=== PATIENT | male | born 1930 | race Caucasian/White ===

== ENCOUNTER → 2018-01-25 | Outpatient (CLI) | payer MEDICARE, BC ==
[~2018-01-25] MED LIST: ASPIR 8181 MG PO; ATORVASTATIN CA40 MG PO; BRILINTA90 MG PO; CARVEDILOL3.125 MG PO; FISH OIL 1,001000 M2 PO; UNICOMPLEX M TA1 TA1 PO; VITAMIN D3400 UNI1 PO
--- NOTE | 2018-01-25 13:27 | 2DMMODE ---
[place] [address] 2 D/M-MODE ECHOCARDIOGRAM Name: SHORTY HURST Room: [facility]#: [id number] Admission: 01/25/18 Attend Phys: Megan Roche Discharge: Date of : 34 Date of Service: 01/25/18 1326 Report #: [id number] THIS REPORT FOR: //name// APPROVED REPORT Study performed: 01/25/2018 09:08:43 EXAM: Comprehensive 2D, Doppler, and color-flow Echocardiogram Patient Location: Out-Patient Status: routine BSA: 1.93 HR: 64 bpm BP: 105/66 mmHg Other Information Study Quality: Good Indications CAD 2D Dimensions LVEF(%): 68.94 (>50%) IVSd: 10.40 (7-11mm) LVOT Diam: 20.42 (18-24mm) LVDd: 45.38 mm PWd: 10.30 (7-11mm) Ascending Ao: 28.73 (22-36mm) LVDs: 27.90 (25-40mm) Aortic Root: 30.55 mm Simmons's LVEF: 68.94 % Volumes Left Atrial Volume (Systole) LA ESV Index: 13.10 mL/m2 Aortic Valve AoV Peak Alexys.: 0.90 m/s AO Peak Gr.: 3.23 mmHg LVOT Max P.92 mmHg AO Mean Gr.: 1.76 mmHg LVOT Mean P.96 mmHg LVOT Max V: 0.69 m/s AO V2 VTI: 17.24 cm LVOT Mean V: 0.45 m/s RAYMOND (VTI): 3.03 cm2 LVOT V1 VTI: 15.92 cm Mitral Valve E/A Ratio: 0.87 MV Decel. Time: 381.24 [place] [address] 2 D/M-MODE ECHOCARDIOGRAM Name: SHORTY HURST Room: [facility]#: [id number] Admission: 01/25/18 Attend Phys: Megan Roche Discharge: Date of : 34 Date of Service: 01/25/18 1326 Report #: [id number] MV E Max Alexys.: 0.50 m/s MV PHT: 110.56 ms MVA (PHT): 1.99 cm2 TDI E/Lateral E': 4.17 E/Medial E': 5.00 Medial E' Alexys.: 0.10 m/s Lateral E' Alexys.: 0.12 m/s Pulmonary Valve PV Peak Alexys.: 0.81 m/s PV Peak Gr.: 2.62 mmHg Tricuspid Valve TR Peak Gr.: 23.19 mmHg RVSP: 28.19 mmHg Left Ventricle The left ventricle is normal size. There is inferobasilar hypokinesis noted. There is normal left ventricular wall thickness. Left ventricular systolic function is borderline. LVEF is 50-55%. Grade I - abnormal relaxation pattern. Right Ventricle The right ventricle is normal size. The right ventricular systolic function is normal. Atria The left atrium size is normal. The right atrium size is normal. Aortic Valve The aortic valve is normal in structure. No aortic regurgitation is present. There is no aortic valvular stenosis. Mitral Valve The mitral valve is normal in structure. Mild mitral regurgitation. No evidence of mitral valve stenosis. Tricuspid Valve The tricuspid valve is normal in structure. Mild tricuspid regurgitation. The RVSP is __28.2 mmHg. Pulmonic Valve The pulmonary valve is normal in structure. There is no pulmonic valvular regurgitation[place] [address] 2 D/M-MODE ECHOCARDIOGRAM Name: SHORTY HURST Room: [facility]#: [id number] Admission: 01/25/18 Attend Phys: Megan Roche Discharge: Date of : 34 Date of Service: 01/25/18 1326 Report #: [id number] The aortic root is normal in size. IVC is normal in size and collapses with >50% inspiration Pericardium There is no pericardial effusion. <Conclusion> The left ventricle is normal size. There is normal left ventricular wall thickness. Left ventricular systolic function is borderline. LVEF is 50-55%. Grade I - abnormal relaxation pattern. The right ventricle is normal size. The left atrium size is normal. The aortic valve is normal in structure. The mitral valve is normal in structure. Mild mitral regurgitation. The tricuspid valve is normal in structure. Mild tricuspid regurgitation. The RVSP is __28.2 mmHg. IVC is normal in size and collapses with >50% inspiration There is no pericardial effusion. There is inferobasilar hypokinesis noted. <ELECTRONICALLY SIGNED> By: Brian Huang MD, FACC 01/25/181325 25 25 rBian Huang MD, FACC /INF
== END ==
LOC: M.CRD 08:46
DX: I08.1 Rheumatic disorders of both mitral and tricuspid valves (principal); I25.10 Atherosclerotic heart disease of native coronary artery without angina pectoris; I21.11 ST elevation (STEMI) myocardial infarction involving right coronary artery

== ENCOUNTER 2018-08-29 12:38 | Inpatient (IN) | payer MEDICARE, BC ==
[~2018-08-29] VITALS: Ht 152.4 cm; Wt 72.6 kg
--- NOTE | ~2018-08-29 | CON ---
[address] [address] CONSULTATION Name: SHORTY HURST Room: [address] IN M.R.#: [id number] Admission: 08/29/18 Attend Phys: Belen Jacobs Discharge: Date of : 32 Report #: [id number] THIS REPORT FOR: //name// CC: Garett Ponce DATE OF SERVICE: 08/30/2018 HISTORY OF PRESENT ILLNESS: This is an 87-year-old male patient who is being evaluated for an episode of dizziness and syncope he had. He felt lightheaded. He was weak in all 4 extremities. He said he was fully conscious and he himself called 911. No clear tonic-clonic activity was noticed. He does have a cardiac history, but according to son, his blood pressure was normal and he did not feel that he had any cardiac symptoms associated with it. His symptoms have become better. He looks pretty unhappy because he does not like to be in the hospital. He did have an associated diaphoresis along with it. REVIEW OF SYSTEMS: His 14-point review of system was carried out. He indicated that he had cardiac problems in the past. He had stent put in. It was about 1 year ago. He follows up with his utility pipe layer and has not had any further symptoms from cardiac perspective. He denies any new eye, ENT, respiratory, GI, , musculoskeletal, constitutional, dermatological, hematological, psychiatric, throat, allergic symptom associated with present symptomatology. PAST MEDICAL HISTORY: Positive for cardiac problem. FAMILY HISTORY: Negative for any early age stroke. SOCIAL HISTORY: He lives with his . He does not drink alcohol or smoke. PHYSICAL EXAMINATION: Indicate he is alert, responsive. His speech, concentration, fund of knowledge and memory is at his baseline. Cranial nerve examination 2-12 was unremarkable. The patient has symmetrical strength, sensation, reflexes and tone in all 4 extremities. There is no cerebellar sign or papilledema. Cardiac examinations appear unremarkable ox, no respiratory difficulty or rhonchi. Pulses are somewhat difficult to feel in the legs; no edema, cyanosis or jaundice. No meningeal sign. No carotid bruit. He is moderately built individual who is thin and his vision and hearing looks adequate. His blood pressure is 116/63, respiration is 16, pulse is 71, temperature is 98. LABORATORY DATA: His WBC count is 5.4. His sodium is slightly low at 131 and it was 129 on admission. He did have a CT scan of the head, [place] [address] CONSULTATION Name: SHORTY HURST Room: [address]#: [id number] Admission: 08/29/18 Attend Phys: Belen Jacobs Discharge: Date of : 32 Report #: [id number] IMPRESSION: Clinically, it does not look like the episode was neurological in origin. However, the possibility of posterior fossa transient ischemic attack or seizures cannot be fully excluded. I think he needs further workup for that. I discussed the situation with him. Initially, he was reluctant, but then he said he will proceed with the workup. I would like to get an MRI/MRA and an EEG done. If that is negative, that will make it even less likely that there is a neurological cause and the emphasis should be continuing to look for systemic including cardiac causes for which he is already being worked up. RECOMMENDATIONS: 1. MRI. 2. MRA. 3. EEG. 4. If that workup is negative, then I do not believe any further neurological workup is indicated in this patient. Thank you very much for this referral. By: 0924 [id number] Wolf MD /nt
--- NOTE | ~2018-08-29 | EEG ---
[address] [address] EEG STUDY REPORT Name: ARISSHORTY Skylar Room: [address] IN .#: [id number] Admission: 08/29/18 Attend Phys: Belen Jacobs Discharge: Date of : 32 Report #: [id number] THIS REPORT FOR: //name// CC: Garett Ponce DATE OF SERVICE: 08/30/2018 This patient is admitted with an episode of presyncope. EEG is being done to evaluate that further. The patient's EEG was done by placing the electrode by standard 10-20 system of electrode placement. Both referential and sequential montages were used for recording. Background activity in this patient's EEG is about 10 Hz and 30 microvolts. It is a symmetrical activity. Photic stimulation was unremarkable. The patient went to sleep that is associated with bilaterally symmetrical sleep spindle and vertex sharp waves. Throughout the record, no active epileptiform activity was noticed. IMPRESSION: This patient's electroencephalogram is unremarkable. By: 1602 1608Talha Wolf MD /nt
[2018-08-29 12:42] VITALS: BP 134/70
[2018-08-29 13:11] LABS: ABSOLUTE EOSINOPHILS 0.1 thou/uL (0.0-0.7); ABSOLUTE LYMPHOCYTES 1.4 thou/uL (0.8-5.3); ABSOLUTE MONOCYTES 0.5 thou/uL (0.0-1.2); ABSOLUTE NEUTROPHILS 3.3 thou/uL (1.6-8.1); BASOPHILS 0.4 %; EOSINOPHILS 1.4 %; HEMATOCRIT 35.8 % (42.0-52.0); HEMOGLOBIN 11.8 gm/dL (14.0-18.0); LYMPHOCYTES 26.1 %; MCH 28.1 pg (26.0-34.0); MCHC 33.1 g/dL (28.0-37.0); MCV 84.9 fL (80.0-100.0); MPV 7.1 fl. (7.2-11.1); NUCLEATED RBCS 0 /100WBC; PLATELET COUNT* 196 thou/uL (150-400); POLYS 62.1 %; RBC 4.21 mil/uL (4.50-6.00); WBC 5.4 thou/uL (4.0-11.0)
[2018-08-29 13:20] LABS: ANION GAP 7 mmol/L (7-16); BUN 18 mg/dL (7-18); CALCIUM 8.6 mg/dL (8.5-10.1); CHLORIDE 94 mmol/L (98-107); CO2 28 mmol/L (21-32); CREATININE 0.9 mg/dL (0.6-1.3); GLUCOSE 108 mg/dL (70-99); POTASSIUM 4.4 mmol/L (3.5-5.1); SODIUM 129 mmol/L (136-145)
[2018-08-29 13:27] LABS: ALBUMIN 3.6 g/dL (3.4-5.0); ALKALINE PHOSPHATASE 46 U/L (46-116); LIPASE 377 U/L (73-393); SGOT 17 U/L (15-37); SGPT 20 U/L (30-65); TOTAL BILIRUBIN 0.6 mg/dL (<0.1-1.0); TROPONIN-I LEVEL <0.06 ng/mL (<0.06)
[2018-08-29 13:33] LABS: APTT 23.2 Seconds (25.0-31.3); PROTIME 10.5 Seconds (9.20-11.50)
[2018-08-29 13:46] LABS: URINE BILIRUBIN NEGATIVE (Negative); URINE BLOOD NEGATIVE (Negative); URINE CLARITY CLEAR; URINE COLOR YELLOW; URINE GLUCOSE-RANDOM NEGATIVE (Negative); URINE KETONES 1+ (Negative); URINE LEUKOCYTES-REFLEX NEGATIVE (Negative); URINE NITRITE-REFLEX NEGATIVE (Negative); URINE PROTEIN TRACE (Negative); URINE SPECIFIC GRAVITY 1.025 (1.005-1.030)
[2018-08-29 14:07] VITALS: BP 118/63
--- NOTE | 2018-08-29 14:32 | EKG ---
[place] [address] ELECTROCARDIOGRAM REPORT Name: SHORTY HURST Room: [place] [address] [facility].#: [id number] Admission: 08/29/18 Attend Phys: Belen Jacobs Discharge: Date of : 32 Report #: [id number] THIS REPORT FOR: //name// [facility] ED Test Date: 2018-08-29 Test Time: 12:43:51 Pat Name: SHORTY HURST Department: Room: [facility] Gender: M Business Architect: Maximiliano RIVERA : 1930 Requested By: Fuad Carrillo Order Number: [id number] MD: Andrea Gillette Measurements Intervals [place] Rate: 64 P: 9 MA: 178 QRS: -15 QRSD: 99 T: -14 QT: 391 QTc: 404 Interpretive Statements Sinus rhythm Borderline left axis deviation Low voltage, extremity leads Abnormal R-wave progression, early transition Compared to ECG 05/20/2017 03:24:41 Low QRS voltage now present Myocardial infarct finding no longer present Electronically Signed On 08-29-2018 14:32:38 PRECISION LENS GRINDER APPRENTICE by Andrea Gillette [email or web address] <ELECTRONICALLY SIGNED> By: Andrea Gillette MD, FACC 08/29/18 1432 1243 1243 Andrea Gillette MD, FACC /EPI
[2018-08-29 15:43] VITALS: BP 131/66
[2018-08-29 16:00] VITALS: BP 117/59
--- NOTE | 2018-08-29 16:09 | NUR ---
ASSUMED PT CARE REPORT RECEIVED FORM NURSE. PT IS AOX4 SR ON GREENSKEEPER. IV LINES PATENT. ADMISSION HX DONE. ADMISSION ASSESSMENT DONE. REFER TO CHARTING. PT IS IN ROOM SITTING IN BED WITH FAMILY. SNACK PROVIDED. HYDRATION ENCOURAGED. IV FLUID STARTED ORDERED. WILL CONTINUE TO MONITOR.
--- NOTE | 2018-08-29 18:55 | NUR ---
NIH SCORE 0. TALKED TO PT SON TO BRING MEDICATION LIST. CONSULTS CALLED.
[2018-08-29 20:00] VITALS: BP 105/58
[2018-08-30] VITALS: BP 102/60
[2018-08-30 04:00] VITALS: BP 116/63
[2018-08-30 05:21] LABS: CHOLESTEROL 108 mg/dL (<200); HDL CHOLESTEROL 62 mg/dL (>40); LDL CHOLESTEROL 40 mg/dL (<100); TC:HDL 1.7 Ratio (Not establshd); TRIGLYCERIDE 33 mg/dL (<150); VLDL 7 mg/dL (<40)
[2018-08-30 05:29] LABS: CALCIUM 8.2 mg/dL (8.5-10.1); CREATININE 0.7 mg/dL (0.6-1.3)
[2018-08-30 05:33] LABS: SERUM ASSESSMENT Clear
--- NOTE | 2018-08-30 07:35 | NUR ---
ASSUMED PT CARE @ 1930. PT A=O X 4 BUT FORGETFUL R/T ANXIETY. PT REPORTS "IM WORRIED ABOUT MY ." PT STATES HE CAN'T TAKE CARE OF HER ANYMORE (R/T ALZHEIMER'S) AND IS WORRIED ABOUT WHO WILL TAKE CARE OF HER. THIS HAS RESULTED IN POOR SLEEP SEVERAL NIGHTS IN A ROW. REQUESTED SLEEP MED. GIVEN. PT VOIDED FREQUENTLY PER URINAL. 150-250CC EACH TIME. DROP OF BLOOD NOTED X2 IN TOILET WHEN PT UP TO TOILET. ATTEMPTED TO HAVE BM BUT WAS ONLY ABLE TO URINATE. NO EXTERNAL HEMMORRHOIDS NOTED. POST VOID RESIDUAL 39CC AFTER PT VOIDED IN TOILET. PT DENIES BURNING WITH URINATION THIS AM BUT REPORTED SOME EARLIER IN SHIFT. HS GOAL OF SLEEP PARTIALLY ACHIEVED. CALL AT BEDSIDE. HOURLY ROUNDING FOR SAFETY.
[2018-08-30 09:15] VITALS: BP 102/54
[2018-08-30 09:53] LABS: URINE BILIRUBIN NEGATIVE (Negative); URINE BLOOD TRACE (Negative); URINE CLARITY CLEAR; URINE COLOR YELLOW; URINE GLUCOSE-RANDOM NEGATIVE (Negative); URINE KETONES TRACE (Negative); URINE LEUKOCYTES-REFLEX NEGATIVE (Negative); URINE NITRITE-REFLEX NEGATIVE (Negative); URINE PROTEIN NEGATIVE (Negative); URINE UROBILINOGEN 0.2 E.U./dl (0.2-1.0)
--- NOTE | 2018-08-30 10:19 | EKG ---
[place] [address] ELECTROCARDIOGRAM REPORT Name: SHORTY HURST Room: [address] ADM IN M.R.#: [id number] Admission: 08/29/18 Attend Phys: Belen Jacobs Discharge: Date of : 32 Report #: [id number] THIS REPORT FOR: //name// [facility] Test Date: 2018-08-29 Test Time: 17:45:34 Pat Name: SHORTY HURST Department: Room: [address] Gender: M Explosive Ordnance Disposal Specialist: JOSE DE JESUS : 1930 Requested By: Daevy Ponce Order Number: [id number] Reading MD: Garett Jarrell Measurements Intervals [place] Rate: 69 P: 47 NC: 177 QRS: -13 QRSD: 89 T: -18 QT: 384 QTc: 412 Interpretive Statements Sinus rhythm Borderline low voltage, extremity leads Abnormal R-wave progression, early transition Baseline wander in lead(s) V1 Compared to ECG 08/29/2018 12:43:51 No significant changes Electronically Signed On 08-30-2018 10:18:45 DATA REDUCTION TECHNICIAN by Garett Jarrell [email or web address] <ELECTRONICALLY SIGNED> By: Garett Jarrell MD, FACC 08/30/18 1018 1745 1745 Garett Jarrell MD, [facility] /EPI
--- NOTE | 2018-08-30 10:33 | NUR ---
Pt out of room when CM went to assess, will f/u later
--- NOTE | 2018-08-30 11:18 | NUR ---
Pt is A&O. Resides at home with his . has alz and Pt is primary caregiver. Pt voiced feelings of being tired, discussed LTC options with Pt for , Pt stated that his son is working on finding a suitable placement for Pt v. paid in home caregivers. Son is home with , while Pt is in the hospital. Pt anxious to dc home, possible dc to home later today pending further testing. Pt is active and independent. No DME. No hx of HH or SNF. Hx of acute rehab. Son will provide dc transportation at dc. Following.
[2018-08-30 12:00] VITALS: BP 123/63
--- NOTE | 2018-08-30 13:33 | CON ---
[address] [address] CONSULTATION Name: SHORTY HURST Room: [address] IN M.R.#: [id number] Admission: 08/29/18 Attend Phys: Belen Jacobs Discharge: Date of : 32 Report #: [id number] THIS REPORT FOR: //name// CC: TAMI Ponce DATE OF SERVICE: 08/30/2018 HISTORY OF PRESENT ILLNESS: The patient is an 87-year-old white male who I was asked to see in the hospital today after he complained of fatigue. The patient initially presented in 04/2017 with chest pain. He was brought to the [facility], he was found to be having acute inferior STEMI. He was seen on an urgent basis by my partner, Dr. Brian Huang. He underwent urgent cardiac catheterization from the right femoral artery. He was found to have no significant disease in the LAD or circumflex. 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 Ventriculogram was not performed. He was given Angiomax and loaded with Brilinta. Dr. Huang performed emergent angioplasty and placed two drug-eluting stents. He also had a coronary stent placed in the distal right coronary artery. He apparently was initially placed on aspirin and Brilinta. He had an echocardiogram performed at that time that showed an ejection fraction of 50% with mild mitral regurgitation. The patient has done fairly well since that time. He notes he recently saw Dr. Huang, who cut back on his dose of statin drug because of complaint of leg pain. He underwent an echocardiogram in January of this year that showed an ejection fraction of 50% with mild mitral regurgitation. He actually underwent a nuclear stress test in June that showed an ejection fraction of 70% with a fixed inferior defect, but no reversible ischemia. The patient is not very active because of his age. He continues to take aspirin and Plavix. He did have one episode of some blood in stool. He was doing well until the last few days, he felt fatigued and weak. He felt lightheaded. Because of his lightheadedness and fatigue, he called the ambulance yesterday, was brought here to [facility]. He denied any recent fever, vomiting, diarrhea. There has been no other change in his medications. Denied recent chest pain, shortness of breath or palpitations. PAST MEDICAL HISTORY: He has had previous hernia repair. He has a history of hyperlipidemia. No history of hypertension or diabetes. MEDICATIONS: His medications, which he has been on since his myocardial infarction consists of Lipitor, Plavix, carvedilol, aspirin. ALLERGIES: He has no known drug allergies. FAMILY HISTORY: [place] [address] CONSULTATION Name: ARISSHORTY Room: [address] IN [facility]#: [id number] Admission: 08/29/18 Attend Phys: Belen Jacobs Discharge: Date of : 32 Report #: [id number] SOCIAL HISTORY: He is . He and his live in [place]. He is a retired sargent. No smoking or alcohol use. REVIEW OF SYSTEMS: No history of stroke, asthma, peptic ulcer disease, liver disease, kidney disease, cancer, psychiatric illness, chronic skin condition. PHYSICAL EXAMINATION: GENERAL: Elderly, frail-appearing male, lying in bed. He appeared in no distress. VITAL SIGNS: On admission, his blood pressure was 120/60, pulse was 60. He is afebrile. HEENT: He is anicteric. Conjunctivae pink. Mucous membranes moist. NECK: Veins nondistended. No carotid bruits. Neck supple. CHEST: Clear to auscultation. CARDIOVASCULAR: Regular rate and rhythm without murmur. ABDOMEN: Soft, nontender. EXTREMITIES: Had no edema. Posterior tibial pulse 2+ bilaterally. SKIN: Warm, dry. NEUROLOGIC: Nonfocal. LYMPH: No adenopathy. MUSCULOSKELETAL: No joint effusion. Her ECG on admission showed a sinus rhythm with early transition, but no significant ST or T-wave change. His workup in the Emergency Room yesterday, he had a CT scan of the head performed without contrast that showed small vessel disease consistent with atherosclerosis with some volume loss and possible age-related. His chest x-ray showed normal heart size, clear lung arias. LABORATORY DATA: Sodium 131, creatinine 0.7, glucose 132, total protein 7, albumin 3.6. Troponin 0.06. BNP 1257. Cholesterol 108, triglycerides 33, HDL 62, LDL 40. His white blood cell count was 5.4, hemoglobin 11.8, hematocrit 35.8. Urinalysis, trace protein, negative leukocytes. IMPRESSION AND RECOMMENDATIONS: 1. Complained of fatigue. Reason unclear. I would check thyroid function studies. I would recommend discontinuing his small dose of beta jesús. 2. Previous coronary stents. Since it has been more than one year following his myocardial infarction, I think it is reasonable to discontinue aspirin, continue Plavix by itself. 3. History of hyperlipidemia. Because of complaint of fatigue, would stop his statin drug. 4. Complaint of bright red blood per rectum. Consider colonoscopy. <ELECTRONICALLY SIGNED> By: Tami Jarrell MD, [facility] 08/30/18 1333 0819 1001Dmike Jarrell MD, [facility] /nt
[2018-08-30 16:00] VITALS: BP 124/67
[2018-08-30 19:08] LABS: GLYCOHEMOGLOBIN (HGB A1C) 5.9 % (4.8-5.6)
[2018-08-30 20:00] VITALS: BP 140/59
[2018-08-31] VITALS: BP 122/67
[2018-08-31 04:00] VITALS: BP 121/68
--- NOTE | 2018-08-31 04:44 | NUR ---
PT CARE ASSUMED AT 1930. SAT MAINTAINED IN RA. ALERT AND ORIENTED X4 AND FORGETFUL. CALL LIGHT WITHIN REACH AND BED IN LOW POSITION. PT IS SAD, WORRIED ABOUT HER AND WANTS TO GO HOME. DENIES CHEST PAIN AND SOB. HOURLY ROUNDING DONE FOR PT SAFETY.
[2018-08-31 05:10] LABS: HEMATOCRIT 33.8 % (42.0-52.0); HEMOGLOBIN 11.4 gm/dL (14.0-18.0); MCH 28.3 pg (26.0-34.0); MCHC 33.7 g/dL (28.0-37.0); MPV 6.9 fl. (7.2-11.1); RBC 4.03 mil/uL (4.50-6.00); RDW-CV 14.6 % (10.5-14.5); WBC 5.3 thou/uL (4.0-11.0)
[2018-08-31 05:33] LABS: CALCIUM 8.2 mg/dL (8.5-10.1); CREATININE 0.7 mg/dL (0.6-1.3); POTASSIUM 3.9 mmol/L (3.5-5.1)
[2018-08-31 08:00] VITALS: BP 122/69
[2018-08-31] MEDS ORDERED: CENTRUM SILVER1 EAC2 PO (11:17)
[2018-08-31 12:00] VITALS: BP 119/68
--- NOTE | 2018-08-31 13:13 | NUR ---
BAGGAGE CHECKER SPOKE TO THE PATIENT TO DISCUSS DISCHARGE PLANNINGN NEEDS AND HH AT D/C. PATIENT DECLINED. D/C MILK COLLECTOR INFORMED THE RN IN-CHARGE OF THE PATIENT OF THIS INFO. CM WILL REMAIN AVAILABLE TO ASSIST AND FOLLOW NEEDED.
[2018-08-31 14:14] VITALS: BP 119/68
[2018-08-31] MEDS ORDERED: PLAVIX 75 MG TA75 MG PO (14:22)
--- NOTE | 2018-08-31 14:46 | NUR ---
VSS, ASSUMED CARE IN THE AM, ASSESSMENT PERFORMED AND CHARTED, FALL PRECAUTIONS IN PLACE AND CALL LIGHT IN REACH, PT IS A&O4, BUT FORGETFUL. ON RA, TRACING SR ON THE MONITOR, PT DENIES ANY PIAN, HAS HAD A BM TODAY, PT HAS BEEN GIVEN D/C ORDERS, AND PT WANTS TO D/C, I PROVITED D/C INSTRUCTION FOR PT TO MEET UP HIS PCP W/IN 24 HOURS, PT WAS EDU ON LOW SODIUM LEVELS, PT DENIES ANY CONCERNS AND STILL WANTS TO STILL D/C I TOOK OUT IV AND TELE MONITOR, AND WAS WALKED OUT VIA WHEEL CHAIR AND STAFF TO CAR WITH KIDS, I CALLED HIS PCP OFFICE TO SET UP APPOINTMENT FOR [facility] LAB[facility],
--- NOTE | 2018-08-31 15:06 | NUR ---
PT. DISCHARGED TO HOME PRIOR TO O.T. EVAL. PLEASE ORDER FURTHER O.T. SERVICES IF NEEDED.
== END 2018-08-31 14:45 | disposition home or self-care (01) | DRG 315 ==
LOC: M.ERS 12:38 → M.TBA-ER 13:42 → M.2W 13:42
PROVIDERS: Family Medicine; ADMIT Internal Medicine
DX: I95.9 Hypotension, unspecified (principal); E87.1 Hypo-osmolality and hyponatremia; K62.5 Hemorrhage of anus and rectum; E78.5 Hyperlipidemia, unspecified; R32 Unspecified urinary incontinence; E87.8 Other disorders of electrolyte and fluid balance, not elsewhere classified; I25.10 Atherosclerotic heart disease of native coronary artery without angina pectoris; K59.00 Constipation, unspecified; R31.9 Hematuria, unspecified; Y92.89 Other specified places as the place of occurrence of the external cause; Z95.5 Presence of coronary angioplasty implant and graft; Z79.82 Long term (current) use of aspirin; Z79.02 Long term (current) use of antithrombotics/antiplatelets; Z79.899 Other long term (current) drug therapy; Z82.49 Family history of ischemic heart disease and other diseases of the circulatory system

== ENCOUNTER 2018-09-04 11:19 | Emergency (ER) | payer MEDICARE, BC ==
[~2018-09-04] VITALS: Ht 180.3 cm; Wt 69.4 kg
[~2018-09-04 11:19] MED LIST changes: +CENTRUM SILVER1 EAC2 PO; +PLAVIX 75 MG TA75 MG PO
[2018-09-04 11:57] LABS: ABSOLUTE EOSINOPHILS 0.1 thou/uL (0.0-0.7); ABSOLUTE LYMPHOCYTES 1.3 thou/uL (0.8-5.3); ABSOLUTE MONOCYTES 0.5 thou/uL (0.0-1.2); ABSOLUTE NEUTROPHILS 2.3 thou/uL (1.6-8.1); BASOPHILS 0.5 %; EOSINOPHILS 1.6 %; HEMATOCRIT 34.6 % (42.0-52.0); HEMOGLOBIN 11.5 gm/dL (14.0-18.0); LYMPHOCYTES 31.8 %; MCH 27.9 pg (26.0-34.0); MCHC 33.2 g/dL (28.0-37.0); MCV 84.1 fL (80.0-100.0); MPV 6.5 fl. (7.2-11.1); NUCLEATED RBCS 0 /100WBC; PLATELET COUNT* 207 thou/uL (150-400); POLYS 54.1 %; RBC 4.11 mil/uL (4.50-6.00); WBC 4.2 thou/uL (4.0-11.0)
[2018-09-04 12:06] LABS: ANION GAP 7 mmol/L (7-16); APTT 25.9 Seconds (25.0-31.3); BUN 10 mg/dL (7-18); CALCIUM 8.4 mg/dL (8.5-10.1); CHLORIDE 92 mmol/L (98-107); CO2 30 mmol/L (21-32); CREATININE 0.9 mg/dL (0.6-1.3); GLUCOSE 88 mg/dL (70-99); POTASSIUM 3.9 mmol/L (3.5-5.1); PROTIME 10.2 Seconds (9.20-11.50); SODIUM 129 mmol/L (136-145)
[2018-09-04 12:13] LABS: ALBUMIN 3.4 g/dL (3.4-5.0); ALKALINE PHOSPHATASE 49 U/L (46-116); SGOT 25 U/L (15-37); SGPT 24 U/L (30-65); TOTAL BILIRUBIN 0.6 mg/dL (<0.1-1.0); TOTAL PROTEIN 6.7 g/dL (6.4-8.2); TROPONIN-I LEVEL <0.06 ng/mL (<0.06)
[2018-09-04 13:28] LABS: URINE BILIRUBIN NEGATIVE (Negative); URINE BLOOD TRACE (Negative); URINE CLARITY CLEAR; URINE COLOR YELLOW; URINE GLUCOSE-RANDOM NEGATIVE (Negative); URINE KETONES NEGATIVE (Negative); URINE LEUKOCYTES-REFLEX NEGATIVE (Negative); URINE NITRITE-REFLEX NEGATIVE (Negative); URINE PROTEIN NEGATIVE (Negative)
[2018-09-04] MEDS ORDERED: CITRATE OF MAG296 M1 PO (14:38)
[2018-09-04 14:50] VITALS: BP 134/71
--- NOTE | 2018-09-04 16:23 | EKG ---
[place] [address] ELECTROCARDIOGRAM REPORT Name: SHORTY HURST Room: [facility]#: [id number] Admission: 09/04/18 Attend Phys: Discharge: 09/04/18 Date of : 32 Report #: [id number] THIS REPORT FOR: //name// [facility] ED Test Date: 2018-09-04 Test Time: 11:57:19 Pat Name: SHORTY HURST Department: Room: Gender: M Hoisting Pile Driving Engineer: Belen WESTFALL : 1930 Requested By: Luciano Barrera Order Number: [id number] MD: Andrea Gillette Measurements Intervals [place] Rate: 67 P: 47 [place]: 176 QRS: -4 QRSD: 91 T: -3 QT: 398 QTc: 420 Interpretive Statements Sinus rhythm Low voltage, extremity leads Abnormal R-wave progression, early transition Compared to ECG 08/29/2018 17:45:34 No significant changes Electronically Signed On 09-04-2018 16:23:22 PUMP SERVICER by Andrea Gillette [email or web address] <ELECTRONICALLY SIGNED> By: Andrea Gillette MD, FAC 09/04/18 1623 1157 1157 Andrea Gillette MD, [facility] /EPI
== END 2018-09-04 14:51 | disposition home or self-care (01) ==
LOC: M.ERS 11:19
PROVIDERS: Emergency Medicine Emergency Medical Services
DX: K59.00 Constipation, unspecified (principal); Z95.5 Presence of coronary angioplasty implant and graft

== ENCOUNTER 2019-01-02 13:56 | Emergency (ER) | payer MEDICARE, BC ==
[~2019-01-02] VITALS: Ht 180.3 cm; Wt 65.8 kg
[~2019-01-02 13:56] MED LIST changes: +CITRATE OF MAG296 M1 PO; +CLOPIDOGREL75 MG PO; +PAXIL10 MG PO; +REMERON15 MG PO; +SSD25 GM TOP; +TRAZODONE HCL50 MG PO; +ZYPREXA 5 MG TAB5 M1 PO
[2019-01-02 14:30] LABS: ABSOLUTE EOSINOPHILS 0.3 thou/uL (0.0-0.7); ABSOLUTE MONOCYTES 0.5 thou/uL (0.0-1.2); ABSOLUTE NEUTROPHILS 3.5 thou/uL (1.6-8.1); BASOPHILS 0.6 %; EOSINOPHILS 5.3 %; HEMATOCRIT 34.4 % (42.0-52.0); HEMOGLOBIN 11.3 gm/dL (14.0-18.0); LYMPHOCYTES 31.6 %; MCH 28.6 pg (26.0-34.0); MCHC 32.8 g/dL (28.0-37.0); MCV 87.1 fL (80.0-100.0); MONOCYTES 7.9 %; MPV 7.4 fl. (7.2-11.1); NUCLEATED RBCS 0 /100WBC; PLATELET COUNT* 215 thou/uL (150-400); POLYS 54.6 %; RBC 3.95 mil/uL (4.50-6.00); WBC 6.3 thou/uL (4.0-11.0)
[2019-01-02 14:39] LABS: APTT 24.9 Seconds (25.0-31.3)
[2019-01-02 14:48] LABS: ALKALINE PHOSPHATASE 72 U/L (46-116); ANION GAP 4 mmol/L (7-16); BUN 13 mg/dL (7-18); CALCIUM 8.6 mg/dL (8.5-10.1); CHLORIDE 105 mmol/L (98-107); CO2 31 mmol/L (21-32); GLUCOSE 123 mg/dL (70-99); LIPASE 254 U/L (73-393); POTASSIUM 4.1 mmol/L (3.5-5.1); SGOT 17 U/L (15-37); SGPT 20 U/L (30-65); SODIUM 140 mmol/L (136-145); TOTAL BILIRUBIN 0.3 mg/dL (<0.1-1.0); TROPONIN-I LEVEL <0.06 ng/mL (<0.06)
[2019-01-02 14:57] LABS: URINE BILIRUBIN NEGATIVE (Negative); URINE BLOOD NEGATIVE (Negative); URINE CLARITY CLEAR; URINE COLOR YELLOW; URINE GLUCOSE-RANDOM NEGATIVE (Negative); URINE KETONES NEGATIVE (Negative); URINE LEUKOCYTES-REFLEX TRACE (Negative); URINE NITRITE-REFLEX NEGATIVE (Negative); URINE PROTEIN NEGATIVE (Negative); URINE UROBILINOGEN 0.2 E.U./dl (0.2-1.0)
[2019-01-02 15:05] LABS: AMP/METHAMP Negative (Negative); BARBITURATES Negative (Negative); BENZODIAZEPINES Negative (Negative); COCAINE Negative (Negative); METHADONE Negative (Negative); OPIATES Negative (Negative); PCP Negative (Negative); THC Negative (Negative)
[2019-01-02 15:11] LABS: BACTERIA-REFLEX 1-9 Few /HPF (None Seen); CASTS None Seen /LPF (None Seen); CRYSTALS None Seen /LPF (None Seen); SQUAMOUS NONE SEEN /LPF (0-3); URINE RBC 0-2 Rare /HPF (0-2); URINE WBC-REFLEX 0-5 Rare /HPF (0-5)
[2019-01-02 16:05] VITALS: BP 125/65
--- NOTE | 2019-01-03 14:32 | EKG ---
[place] [address] ELECTROCARDIOGRAM REPORT Name: SHORTY HURST Room: [facility]#: [id number] Admission: 01/02/19 Attend Phys: Discharge: 01/02/19 Date of : 32 Report #: [id number] THIS REPORT FOR: //name// [facility] ED Test Date: 2019-01-02 Test Time: 14:01:14 Pat Name: SHORTY HURST Department: Room: Gender: M Zookeeper: Maximiliano RIVERA : 1930 Requested By: Xenia Bell Order Number: [id number] MD: Brian Huang Measurements Intervals [place] Rate: 74 P: -7 [place]: 171 QRS: -5 QRSD: 90 T: 9 QT: 388 QTc: 431 Interpretive Statements Sinus rhythm Low voltage, extremity leads Abnormal R-wave progression, early transition Compared to ECG 09/04/2018 11:57:19 No significant changes Electronically Signed On 01-03-2019 14:31:52 CDT by Brian Huang [email or web address] <ELECTRONICALLY SIGNED> By: Brian Huang MD, FAC 01/03/19 1431 1401 1401 Brian Huang MD, [facility] /EPI
== END 2019-01-02 16:05 | disposition home or self-care (01) ==
LOC: M.ERS 13:56
PROVIDERS: Physician Assistant
DX: R42 Dizziness and giddiness (principal); R55 Syncope and collapse; Z95.5 Presence of coronary angioplasty implant and graft; Z79.899 Other long term (current) drug therapy

== ENCOUNTER → 2019-02-21 | Outpatient (CLI) | payer MEDICARE, BC ==
--- NOTE | 2019-02-21 15:54 | 2DMMODE ---
[place] [address] 2 D/M-MODE ECHOCARDIOGRAM Name: SHORTY HURST Room: [facility]#: [id number] Admission: 02/21/19 Attend Phys: Megan Roche Discharge: Date of : 34 Date of Service: 02/21/19 1553 Report #: [id number] THIS REPORT FOR: //name// APPROVED REPORT Study performed: 02/21/2019 13:45:04 EXAM: Comprehensive 2D, Doppler, and color-flow Echocardiogram Patient Location: Out-Patient BSA: 1.89 HR: 77 bpm BP: 105/66 mmHg Other Information Study Quality: Good Indications CAD Cardiomyopathy 2D Dimensions IVSd: 10.25 (7-11mm) LVOT Diam: 20.44 (18-24mm) LVDd: 45.61 mm PWd: 10.04 (7-11mm) Ascending Ao: 31.55 (22-36mm) LVDs: 33.40 (25-40mm) Aortic Root: 28.61 mm Volumes Left Atrial Volume (Systole) LA ESV Index: 19.50 mL/m2 Aortic Valve AoV Peak Alexys.: 1.01 m/s AO Peak Gr.: 4.07 mmHg LVOT Max P.73 mmHg AO Mean Gr.: 2.68 mmHg LVOT Mean P.90 mmHg LVOT Max V: 0.66 m/s AO V2 VTI: 20.61 cm LVOT Mean V: 0.44 m/s RAYMOND (VTI): 2.33 cm2 LVOT V1 VTI: 14.65 cm Mitral Valve E/A Ratio: 0.71 MV Decel. Time: 308.72 ms MV E Max Alexys.: 0.55 m/s MV PHT: 89.53 [place] [address] 2 D/M-MODE ECHOCARDIOGRAM Name: SHORTY HURST Room: [facility]#: [id number] Admission: 02/21/19 Attend Phys: Megan Roche Discharge: Date of : 34 Date of Service: 02/21/19 1553 Report #: [id number] MVA (PHT): 2.46 cm2 TDI E/Lateral E': 5.00 E/Medial E': 5.00 Medial E' Alexys.: 0.11 m/s Lateral E' Alexys.: 0.11 m/s Pulmonary Valve PV Peak Alexys.: 0.90 m/s PV Peak Gr.: 3.23 mmHg Tricuspid Valve RAP Estimate: 5.00 mmHg TR Peak Gr.: 28.40 mmHg RVSP: 33.40 mmHg PA Pressure: 33.40 mmHg Left Ventricle The left ventricle is normal size. There is normal LV segmental wall motion. There is normal left ventricular wall thickness. Left ventricular systolic function is normal. The left ventricular ejection fraction is within the normal range. LVEF is 50-55%. Grade I - abnormal relaxation pattern. Right Ventricle The right ventricle is normal size. The right ventricular systolic function is normal. Atria The left atrium size is normal. The right atrium size is normal. Aortic Valve The aortic valve is normal in structure. No aortic regurgitation is present. There is no aortic valvular stenosis. Mitral Valve The mitral valve is normal in structure. Mild mitral regurgitation. No evidence of mitral valve stenosis. Tricuspid Valve The tricuspid valve is normal in structure. Mild tricuspid regurgitation. estimate pa pressure 40 mm Hg Pulmonic Valve The pulmonary valve is normal in structure. There is no pulmonic [place] [address] 2 D/M-MODE ECHOCARDIOGRAM Name: SHORTY HURST AISHWARYA Room: [facility]#: [id number] Admission: 02/21/19 Attend Phys: Megan Roche Discharge: Date of : 34 Date of Service: 02/21/19 1553 Report #: [id number] Great Vessels The aortic root is normal in size. IVC is normal in size and collapses >50% with inspiration. Pericardium There is no pericardial effusion. <Conclusion> LVEF is 50-55%. Mild mitral regurgitation. Mild tricuspid regurgitation. estimate pa pressure 40 mm Hg <ELECTRONICALLY SIGNED> By: Garett Jarrell MD, [facility] 02/21/19 1553 1553 1553 Garett Jarrell MD, [facility] /INF
== END ==
LOC: M.CRD 13:15
DX: I08.1 Rheumatic disorders of both mitral and tricuspid valves (principal); I25.10 Atherosclerotic heart disease of native coronary artery without angina pectoris; I42.9 Cardiomyopathy, unspecified

== ENCOUNTER → 2020-03-10 | Outpatient (CLI) | payer MEDICARE, BC ==
--- NOTE | 2020-03-10 15:16 | 2DMMODE ---
[place] [address] 2 D/M-MODE ECHOCARDIOGRAM Name: ARISSHORTYTEMO NEFF Room: [facility]#: [id number] Admission: 03/10/20 Attend Phys: Megan Roche Discharge: Date of : 34 Date of Service: 03/10/20 1515 Report #: [id number] THIS REPORT FOR: cc: Carolee Anderson Tammy RNP Holkins, John M. MD [facility] ~ APPROVED REPORT Study performed: 03/10/2020 14:04:33 EXAM: Comprehensive 2D, Doppler, and color-flow Echocardiogram Patient Location: Out-Patient BSA: 1.95 HR: 72 bpm BP: 128/78 mmHg Other Information Study Quality: Good Indications CAD 2D Dimensions IVSd: 11.17 (7-11mm) LVOT Diam: 20.31 (18-24mm) LVDd: 44.10 mm PWd: 11.39 (7-11mm) Ascending Ao: 29.52 (22-36mm) LVDs: 30.46 (25-40mm) Aortic Root: 23.74 mm Volumes Left Atrial Volume (Systole) LA ESV Index: 13.40 mL/m2 Aortic Valve AoV Peak Alexys.: 0.97 m/s AO Peak Gr.: 3.78 mmHg LVOT Max P.66 mmHg AO Mean Gr.: 2.13 mmHg LVOT Mean P.39 mmHg LVOT Max V: 0.82 m/s AO V2 VTI: 20.19 cm LVOT Mean V: 0.55 m/s RAYMOND (VTI): 2.62 cm2 LVOT V1 VTI: 16.32 cm Mitral Valve E/A Ratio: 0.74 [place] [address] 2 D/M-MODE ECHOCARDIOGRAM Name: [facility] HURST [id number] Admission: 03/10/20 Attend Phys: Megan Roche Discharge: Date of : 34 Date of Service: 03/10/20 1515 Report #: [id number] MV Decel. Time: 178.19 ms MV E Max Alexys.: 0.56 m/s MV PHT: 51.67 ms MVA (PHT): 4.26 cm2 TDI E/Lateral E': 5.60 E/Medial E': 6.22 Medial E' Alexys.: 0.09 m/s Lateral E' Alexys.: 0.10 m/s Pulmonary Valve PV Peak Alexys.: 0.90 m/s PV Peak Gr.: 3.23 mmHg Tricuspid Valve RAP Estimate: 5.00 mmHg TR Peak Gr.: 25.85 mmHg RVSP: 30.85 mmHg PA Pressure: 30.85 mmHg Left Ventricle The left ventricle is normal size. There is normal LV segmental wall motion. There is normal left ventricular wall thickness. Left ventricular systolic function is normal. The left ventricular ejection fraction is within the normal range. LVEF is 55-60%. Grade I - abnormal relaxation pattern. Right Ventricle The right ventricle is normal size. The right ventricular systolic function is normal. Atria The left atrium size is normal. The right atrium size is normal. Aortic Valve The aortic valve is normal in structure. No aortic regurgitation is present. There is no aortic valvular stenosis. Mitral Valve The mitral valve is normal in structure. There is no mitral valve regurgitation noted. No evidence of mitral valve stenosis. Tricuspid Valve The tricuspid valve is normal in structure. Mild tricuspid regurgitation[place] [address] 2 D/M-MODE ECHOCARDIOGRAM Name: SHORTY HURST Room: [facility]#: [id number] Admission: 03/10/20 Attend Phys: Megan Roche Discharge: Date of : 34 Date of Service: 03/10/20 1515 Report #: [id number] The pulmonary valve is normal in structure. There is no pulmonic valvular regurgitation. Great Vessels The aortic root is normal in size. IVC is normal in size and collapses >50% with inspiration. Pericardium There is no pericardial effusion. <Conclusion> The left ventricle is normal size. There is normal left ventricular wall thickness. Left ventricular systolic function is normal. The left ventricular ejection fraction is within the normal range. LVEF is 55-60%. Grade I - abnormal relaxation pattern. The right ventricle is normal size. The left atrium size is normal. The aortic valve is normal in structure. The mitral valve is normal in structure. The tricuspid valve is normal in structure. Mild tricuspid regurgitation. IVC is normal in size and collapses >50% with inspiration. There is no pericardial effusion. There is normal LV segmental wall motion. <ELECTRONICALLY SIGNED> By: Brian Huang MD, FACC 03/10/20 1515 1515 1515 Brian Huang MD, FACC /INF
== END ==
LOC: M.CRD 14:00
PROVIDERS: ATTEND Internal Medicine
DX: I07.1 Rheumatic tricuspid insufficiency (principal); I25.5 Ischemic cardiomyopathy; I25.10 Atherosclerotic heart disease of native coronary artery without angina pectoris